=== PATIENT | female | born 1980 | race Caucasian/White ===

== ENCOUNTER 2023-12-08 13:18 | Outpatient (AMB) | payer OTHER, SELFPAY ==
--- NOTE | 2023-12-08 13:28 | A.OFFVIS_ITS ---
Intake Vital Signs 12/08/23 13:32 Height 4 ft 5 in Weight 207 lb BMI 51.8 BP 120/80 Blood Pressure Location Lt brachial Position Sitting Pulse 69 Pulse Source Pulse Oximeter Pulse Oximetry (%) 94 Oxygen Delivery Method Room Air Intake Visit Reasons: 10/21 LVM+Letter ENP-MILA-LVM Intake Note: Patient present for MILA. wants a provider that is more compassionate and empathetic towards her Allergies latex Allergy (Unknown, Verified 12/08/23 14:53) Rash levofloxacin Allergy (Unknown, Verified 12/08/23 14:53) Unknown morphine Allergy (Unknown, Unverified 12/08/23 14:53) Unknown HPI HPI Comments History of Present Illness Details 43 y/o female patient with pmx of spina bifida presents for new in- person visit to manage sleep apnea. Pt report she was diagnosed with moderated MILA and tried CPAP for 5 days. She did not tolerated the pressure and mask, so she returned CPAP. 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 Pt reports snoring, gasping arousals and witnessed apnea spells. She experiences non refreshing sleep with daytime sleepiness, wants to retry CPAP. Sleep questionnaire: Have you ever been diagnosed with a sleep disorder? Yes. Have you ever had a sleep study in the past? Yes. Have you ever been treated for a sleep disorder? Yes, CPAP. Do you take medications for a sleep disorder? No. Do you snore? Yes. Do you wake up gasping at night? Yes, few times. Do you have episodes of apneas? Yes. If yes, are they witnessed? Yes. Do you have episodes of nocturnal chest pain or dyspnea? No. Do you have difficulty initiating sleep? Yes. Do you have difficulty maintaining sleep? Yes. Do you wake up tired? Yes. Do you have headaches upon awakening? No. Do you wake up with dry mouth or throat? Yes. Do you have GERD? Yes. Do you have nocturia? Do self cath due to neurogenic bladder. Do you have nocturnal leg cramps? No. Do you have symptoms of restless legs? Not in her legs, but can happen on her arms. Do you act out your dreams? No. Sleep hygiene questionnaire: What is your usual sleep routine? Usual bedtime is at 11 pm-1 am; Usual wake up time is at 10 -11 am. Do you take naps? Sometimes. Is your sleep environment cool, dark, and quiet? Yes. Do you exercise? No. Do you take caffeine or other stimulants? Yes, in the morning. Do you use electronics in bed? Yes. What is your work schedule? N/A. Hypersomnolence questionnaire: Do you have daytime tiredness or fatigue? Yes. Do you easily fall asleep when inactive? Yes. Have you ever had episodes of sudden weakness? No. Have you ever had episodes of sudden weakness associated with strong emotions? No. PFSH Surgical History (Updated 12/08/23 @ 15:22 by Melvina Gore CMA) History of carpal tunnel surgery Family History (Updated 12/08/23 @ 15:24 by Melvina Gore CMA) Maternal Grandfather Dementia Review of Systems Const All systems reviewed & are unremarkable except as noted in HPI and below Physical Exam Vital Signs: Last Vital Signs Pulse 69 12/08/23 13:32 BP 120/80 12/08/23 13:32 Pulse Ox 94 12/08/23 13:32 Oxygen Delivery Method Room Air 12/08/23 13:32 BMI result Body Mass Index 51.8 Const Other: Pt is in stretcher. General: cooperative Nutritional Appearance: obese Orientation/consciousness: patient oriented x3 Limitations: other limitations (Pt is wheelchair bound.) Neck Neck: Yes full ROM and Yes supple Resp Effort & Inspection: normal respiratory effort and able to speak in complete sentences Neuro General: patient oriented x3 Cranial nerves: Yes CN's II-XII intact bilaterally Cognition (Neuro): normal cognition Psych Appearance: grossly normal Mental Status: mental status grossly normal Affect: normal affect Assessment & Plan Assessment & Plan (1) MILA (obstructive sleep apnea): Comment: Hx of moderate degree of sleep apnea, but not tolerated CPAP. Code(s): G47.33 - Obstructive sleep apnea (adult) (pediatric) Plan Pt is advised to undergo in lab seep study to assess for sleep apnea. Will f/u with pt after study to discuss results and appropriate treatment options. Pt to call with any worsening concerns or questions. Orders: Orders RT PSG in-lab sleep study 12/08/23 G47.10 - Hypersomnia, unspecified, G47.33 - Obstructive sleep apnea (adult) (pediatric) Coding Level of Care Code New Pt Level 3 (41596) Diagnoses MILA (obstructive sleep apnea) G47.33
[2023-12-08 13:32] VITALS: BP 120/80; PULSE 69; O2SAT 94; BMI 51.8
== END 2023-12-08 14:00 | disposition home or self-care (01) ==
PROVIDERS: Visit Provider Nurse Practitioner Family
DX: G47.33 Obstructive sleep apnea (adult) (pediatric) (principal)
CPT/HCPCS: 99203

== ENCOUNTER → 2023-12-08 13:18 | Outpatient (BNVA) | payer OTHER, SELFPAY | PROVIDERS: Visit Provider Nurse Practitioner Family | DX: G47.33 Obstructive sleep apnea (adult) (pediatric) (principal) | CPT/HCPCS: 99202 ==